=== PATIENT | male | born 1935 | race Hispanic/Latino ===

== ENCOUNTER 2016-11-18 08:37 | Outpatient (CLI) | payer MEDICARE ==
--- NOTE | 2016-11-18 10:35 | Ultrasound Report ---
The renal ultrasound: Abnormal renal function studies. The right kidney has a length of 9.1 cm. The kidney has a normal we echogenic pattern. Small focal echo density is identified centrally could represent a calculus. In the superior pole there is an echolucent partially exophytic circumscribed mass measuring 4.2 cm. Slight enhancement of the posterior wall. The kidney is otherwise unremarkable. The left renal length is 9.9 cm. The kidney is echogenically unremarkable. Imaging of the urinary bladder appears normal. There is mild prominence of the prostate gland. Impressions: 1. Superior pole right renal cyst. 2. Possible small right renal calculus. 3. Prominent prostate size.
== END 2016-11-18 08:38 | disposition home or self-care (01) ==
LOC: SPVWC 08:37
PROVIDERS: ATTEND Internal Medicine Nephrology
DX: N20.0 Calculus of kidney (principal); N28.1 Cyst of kidney, acquired; R94.4 Abnormal results of kidney function studies
CPT/HCPCS: 76770

== ENCOUNTER 2021-09-15 19:08 | Inpatient (IN) | payer MEDICARE ==
--- NOTE | 2021-09-15 20:48 | XRay Report ---
CHEST 1 VIEW 09/15/2021 8:20 PM INDICATION / CLINICAL INFORMATION: ams. COMPARISON: None available. FINDINGS: SUPPORT DEVICES: None. HEART / MEDIASTINUM: Post-CABG changes. LUNGS / PLEURA: There is blunting of the left costophrenic angle. There is mild left basilar airspace disease. No pneumothorax. ADDITIONAL FINDINGS: No significant additional findings. IMPRESSION: 1. Blunting at the left costophrenic angle could be due to small effusion or pleural scarring/thicken ing. Adjacent left basilar opacities may be due to scarring or atelectasis. Signer Name: Gallo Covarrubias MD Signed: 09/15/2021 8:44 PM Workstation Name: [id number]
--- NOTE | 2021-09-15 21:55 | Emergency Department Report ---
ED General Adult HPI - General Chief complaint: Dyspnea/Respdistress Stated complaint: TOMA Time Seen by Provider: 09/15/21 19:47 Source: patient Mode of arrival: Ambulatory Limitations: No Limitations - History of Present Illness Initial comments: The patient presents to the emergency department via EMS for altered mental status. Per the patient's sons the patient and the mother were diagnosed with COVID within the last 5 days. Patient was started on antivirals today per the patient's son's. Patient is a resident at the [facility]. Over the last 4 to 5 days the patient has become extremely weak and altered. Due to the patient's altered mental status he was not able to add to the history -: Gradual Consistency: constant Improves with: none Worsens with: none Associated Symptoms: denies other symptoms Treatments Prior to Arrival: none - Related Data Allergies Allergy/AdvReac Type Severity Reaction Status Date / Time No Known Allergies Allergy Verified 09/15/21 19:46 ED Review of Systems ROS: Stated complaint: TOMA Other details as noted in HPI Comment: Unobtainable due to pts medical conditions ED Past Medical Hx - Past Medical History Previous Medical History?: Yes Hx Hypertension: Yes Hx CVA: Yes Hx Heart Attack/AMI: Yes Hx Diabetes: Yes Hx Dementia: Yes - Surgical History Past Surgical History?: Yes Additional Surgical History: coronary bypass ED Physical Exam - General Limitations: No Limitations General appearance: obtunded (But easily arousable) - Head Head exam: Present: atraumatic, normocephalic - Eye Eye exam: Present: normal appearance, PERRL - ENT ENT exam: Present: mucous membranes dry - Neck Neck exam: Present: normal inspection. Absent: tenderness - Respiratory Respiratory exam: Present: decreased breath sounds. Absent: respiratory distress - Cardiovascular Cardiovascular Exam: Present: regular rate, tachycardia - GI/Abdominal GI/Abdominal exam: Present: soft, normal bowel sounds. Absent: distended, tenderness - Extremities Exam Extremities exam: Present: normal inspection - Neurological Exam Neurological exam: Present: altered - Psychiatric Psychiatric exam: Present: other (Not able to assess due to the patient's condition) - Skin Skin exam: Present: warm, dry, intact, normal color. Absent: rash ED Course Vital Signs 09/15/21 19:44 Temperature 100.1 F H Pulse Rate 116 H Respiratory 26 H Rate Blood Pressure 152/76 [Left] O2 Sat by Pulse 96 Oximetry ED Medical Decision Making - Lab Data Result diagrams: 09/15/21 21:13 09/15/21 21:13 Lab Results 09/15/21 09/15/21 09/15/21 Range/Units 21:13 21:13 21:13 WBC 15.6 H (4.5-11.0) K/mm3 RBC 4.73 (3.65-5.03) M/mm3 Hgb 14.5 (11.8-15.2) gm/dl Hct 42.7 (35.5-45.6) % MCV 90 (84-94) fl MCH 31 (28-32) pg MCHC 34 (32-34) % RDW 14.3 (13.2-15.2) % Plt Count 184 (140-440) K/mm3 Lymph % (Auto) 4.7 L (13.4-35.0) % [place] % (Auto) 14.8 H (0.0-7.3) % Eos % (Auto) 0.0 (0.0-4.3) % Baso % (Auto) 0.2 (0.0-1.8) % Lymph # (Auto) 0.7 L (1.2-5.4) K/mm3 [place] # (Auto) 2.3 H (0.0-0.8) K/mm3 Eos # (Auto) 0.0 (0.0-0.4) K/mm3 Baso # (Auto) 0.0 (0.0-0.1) K/mm3 Seg Neutrophils % 80.3 H (40.0-70.0) % Seg Neutrophils # 12.5 H (1.8-7.7) K/mm3 PT 14.3 (12.2-14.9) Sec. INR 0.97 (0.87-1.13) APTT 30.2 (24.2-36.6) Sec. Sodium 142 (137-145) mmol/L Potassium 4.0 (3.6-5.0) mmol/L Chloride 101.5 (98-107) mmol/L Carbon Dioxide 26 (22-30) mmol/L Anion Gap 19 mmol/L BUN 33 H (9-20) mg/dL Creatinine 1.5 H (0.8-1.3) mg/dL Estimated GFR 44 ml/min BUN/Creatinine Ratio 22 % Glucose 78 (75-100) mg/dL POC Glucose (70-105) mg/dL Lactic Acid (0.7-2.0) mmol/L Calcium 9.2 (8.4-10.2) mg/dL Total Bilirubin 0.50 (0.1-1.2) mg/dL AST 30 (5-40) units/L ALT 16 (7-56) units/L Alkaline Phosphatase 94 (35-129) units/L Troponin T < 0.010 (0.00-0.029) ng/mL NT-Pro-B Natriuret Pep 6988 H (0-900) pg/mL Total Protein 7.1 (6.3-8.2) g/dL Albumin 4.1 (3.9-5) g/dL Albumin/Globulin Ratio 1.4 % 09/15/21 09/15/21 Range/Units 21:13 22:41 WBC (4.5-11.0) K/mm3 RBC (3.65-5.03) M/mm3 Hgb (11.8-15.2) gm/dl Hct (35.5-45.6) % MCV (84-94) fl MCH (28-32) pg MCHC (32-34) % RDW (13.2-15.2) % Plt Count (140-440) K/mm3 Lymph % (Auto) (13.4-35.0) % [place] % (Auto) (0.0-7.3) % Eos % (Auto) (0.0-4.3) % Baso % (Auto) (0.0-1.8) % Lymph # (Auto) (1.2-5.4) K/mm3 [place] # (Auto) (0.0-0.8) K/mm3 Eos # (Auto) (0.0-0.4) K/mm3 Baso # (Auto) (0.0-0.1) K/mm3 Seg Neutrophils % (40.0-70.0) % Seg Neutrophils # (1.8-7.7) K/mm3 PT (12.2-14.9) Sec. INR (0.87-1.13) APTT (24.2-36.6) Sec. Sodium (137-145) mmol/L Potassium (3.6-5.0) mmol/L Chloride (98-107) mmol/L Carbon Dioxide (22-30) mmol/L Anion Gap mmol/L BUN (9-20) mg/dL Creatinine (0.8-1.3) mg/dL Estimated GFR ml/min BUN/Creatinine Ratio % Glucose (75-100) mg/dL POC Glucose 78 (70-105) mg/dL Lactic Acid 1.40 (0.7-2.0) mmol/L Calcium (8.4-10.2) mg/dL Total Bilirubin (0.1-1.2) mg/dL AST (5-40) units/L ALT (7-56) units/L Alkaline Phosphatase (35-129) units/L Troponin T (0.00-0.029) ng/mL NT-Pro-B Natriuret Pep (0-900) pg/mL Total Protein (6.3-8.2) g/dL Albumin (3.9-5) g/dL Albumin/Globulin Ratio % - EKG Data -: EKG Interpreted by Me Rate: tachycardia - EKG Data Interpretation: LVH - Radiology Data Radiology results: report reviewed - Medical Decision Making IV antibiotics initiated IV fluids given Critical care attestation.: If time is entered above; I have spent that time in minutes in the direct care of this critically ill patient, excluding procedure time. ED Disposition Clinical Impression: Altered mental status Disposition: 09 ADMITTED INPATIENT Is pt being admited?: Yes Does the pt Need Aspirin: No Condition: Fair
[2021-09-15 22:15] LABS: Basophils % (Auto) 0.2 % (0.0-1.8); Hematocrit 42.7 % (35.5-45.6); Hemoglobin 14.5 gm/dl (11.8-15.2); Lymphocytes # (Auto) 0.7 K/mm3 (1.2-5.4); Lymphocytes % (Auto) 4.7 % (13.4-35.0); Mean Corpuscular HGB Conc 34 % (32-34); Mean Corpuscular Volume 90 fl (84-94); Monocytes # (Auto) 2.3 K/mm3 (0.0-0.8); Monocytes % (Auto) 14.8 % (0.0-7.3); Platelet Count 184 K/mm3 (140-440); Red Blood Count 4.73 M/mm3 (3.65-5.03); Red Cell Distribution Width 14.3 % (13.2-15.2)
[2021-09-15 22:24] LABS: INR 0.97 (0.87-1.13)
[2021-09-15 22:25] LABS: Partial Thromboplastin Time 30.2 Sec. (24.2-36.6)
[2021-09-15 22:27] LABS: Alanine Aminotransferase 16 units/L (7-56); Albumin 4.1 g/dL (3.9-5); BUN/Creatinine Ratio 22; Blood Urea Nitrogen 33 mg/dL (9-20); Calcium 9.2 mg/dL (8.4-10.2); Hemolysis Index 14
[2021-09-15] MEDS ORDERED: SODIUM CHLORIDE 0.9% 1000 ML 1,000 ML IV ONE (22:54)
[2021-09-16] MEDS ORDERED: DEXTROSE 50% IN WATER (25GM) 50 ML SYRINGE IV ONE (00:48)
[2021-09-16] MEDS ORDERED: SODIUM CHLORIDE 0.9% 1000 ML 1,000 ML IV ONE (00:49)
[2021-09-16] MEDS ORDERED: ONDANSETRON 4 MG/2 ML INJ IV PRN (02:07)
[2021-09-16] MEDS ORDERED: MORPHINE 4 MG/1 ML INJ IV PRN (02:07)
[2021-09-16] MEDS ORDERED: MAGNESIUM HYDROXIDE (MOM) ORAL LIQD UDC PO PRN (02:07)
[2021-09-16] MEDS ORDERED: DEXTROSE 50% IN WATER (25GM) 50 ML SYRINGE IV PRN (02:07)
[2021-09-16] MEDS ORDERED: MORPHINE 2 MG/1 ML INJ IV PRN (02:07)
[2021-09-16] MEDS ORDERED: ACETAMINOPHEN 325 MG TAB PO PRN (02:07)
--- NOTE | 2021-09-16 02:24 | History and Physical Report ---
History of Present Illness Date of examination: 09/16/21 Date of admission: 09/16/2021 Chief complaint: Altered Mental Status History of present illness: 86-year-old white male with known history of dementia, coronary artery disease, hypothyroidism, diabetes mellitus, diagnosed about 4 days ago with COVID brought into the emergency room via EMS for evaluation of changes in mental status. Most of the history was given by the 2 sons who was by the bedside. Patient has been started on antiviral agent for the COVID prior to reporting to the emergency room. Family states patient has been feeling extremely weak and has had loss of appetite. There has been no fever or chills. However, patient has been having cough and some mild shortness of breath. Work-up in the emergency room today Work-up in the emergency room today, lab reveals a leukocytosis of 15.6, BUN of 33 and creatinine of 1.5. BNP 6988 urinalysis reveals 1+ bacteria and a few WBCs. Chest x-ray shows blunting at the left costal phrenic angle which could be due to small effusion or pleural scarring/beginning. I just sent left basilar opacity may be due to scarring or atelectasis. CT scan of the head did not show any acute findings according to preliminary readings. Patient has been placed on empiric IV antibiotics. Past History Past Medical History: acute CT, diabetes, hypertension, stroke, other (Dementia) Past Surgical History: CABG Social history: no significant social history Family history: no significant family history Medications and Allergies Allergies Allergy/AdvReac Type Severity Reaction Status Date / Time No Known Allergies Allergy Verified 09/15/21 19:46 Home Medications Medication Instructions Recorded Confirmed Last Taken Type AtorvaSTATin [Lipitor] 40 mg PO QHS 09/16/21 09/16/21 Unknown History Clopidogrel [Plavix] 75 mg PO QDAY 09/16/21 09/16/21 Unknown History Insulin Aspart (Nf) [NovoLOG 0 units SQ TID 09/16/21 09/16/21 Unknown History Flexpen] Insulin Detemir [Levemir Flextouch] 24 unit SQ QDAY 09/16/21 09/16/21 Unknown History Levothyroxine Sodium 50 mcg PO QAM 09/16/21 09/16/21 Unknown History [Levothyroxine] Memantine HCl [Namenda XR 10 each PO BID 09/16/21 09/16/21 Unknown History 0-16-69-28mg Titration Sukh] Pantoprazole [Protonix] 40 mg PO QDAY 09/16/21 09/16/21 Unknown History Tamsulosin [Flomax] 0.4 mg PO QDAY 09/16/21 09/16/21 Unknown History donepeziL [Aricept] 10 mg PO QDAY 09/16/21 09/16/21 Unknown History Review of Systems Constitutional: no fever, no chills Ears, nose, mouth and throat: no nasal congestion, no sore throat Cardiovascular: no chest pain, no palpitations Respiratory: cough, shortness of breath Gastrointestinal: no nausea, no vomiting, no diarrhea Genitourinary Male: no dysuria, no hematuria, no flank pain, no nocturia Musculoskeletal: no neck pain, no low back pain Integumentary: no rash, no pruritis Neurological: confusion, no headaches Psychiatric: no anxiety, no depression Endocrine: no polyphagia, no polydipsia, no polyuria, no nocturia Exam - Constitutional Vitals: Temp Pulse Resp BP Pulse Ox 100.1 F H 85 24 146/67 95 09/15/21 19:44 09/16/21 02:00 09/16/21 02:00 09/16/21 02:00 09/16/21 02:00 General appearance: Present: no acute distress, well-nourished, other (Dry Oral Mucosa) - EENT Eyes: Present: PERRL, EOM intact. Absent: scleral icterus ENT: hearing intact, clear oral mucosa, dentition normal - Neck Neck: Present: supple, normal ROM - Respiratory Respiratory effort: normal Respiratory: bilateral: diminished - Cardiovascular Rhythm: regular Heart Sounds: Present: S1 & S2. Absent: gallop, systolic murmur, diastolic murmur, rub, click - Extremities Extremities: no ischemia, pulses intact, pulses symmetrical, No edema, normal temperature, normal color, Full ROM Peripheral Pulses: within normal limits - Abdominal General gastrointestinal: Present: soft, non-tender, non-distended, normal bowel sounds. Absent: mass - Integumentary Integumentary: Present: clear, warm, dry, normal turgor. Absent: rash - Musculoskeletal Musculoskeletal: strength equal bilaterally - Psychiatric Psychiatric: appropriate mood/affect, intact judgment & insight, memory intact, cooperative - Neurologic Neurologic: CNII-XII intact, no focal deficits, moves all extremities HEART Score - HEART Score Troponin: Troponin T < 0.010 ng/mL (0.00-0.029) 09/15/21 21:13 Results - Labs CBC & Chem 7: 09/15/21 21:13 09/15/21 21:13 Labs: Abnormal lab results 09/15/21 09/15/21 Range/Units 21:13 21:13 WBC 15.6 H (4.5-11.0) K/mm3 Lymph % (Auto) 4.7 L (13.4-35.0) % [place] % (Auto) 14.8 H (0.0-7.3) % Lymph # (Auto) 0.7 L (1.2-5.4) K/mm3 [place] # (Auto) 2.3 H (0.0-0.8) K/mm3 Seg Neutrophils % 80.3 H (40.0-70.0) % Seg Neutrophils # 12.5 H (1.8-7.7) K/mm3 BUN 33 H (9-20) mg/dL Creatinine 1.5 H (0.8-1.3) mg/dL NT-Pro-B Natriuret Pep 6988 H (0-900) pg/mL Assessment and Plan Assessment : 1. Altered mental status 2. COVID-19 3. Leukocytosis 4. DILIA 5. Diabetes mellitus 6. History of coronary artery disease. 7. History of hypothyroidism. 8. Dementia Plan: 1. Patient admitted and placed on isolation precautions. 2. Started on empiric IV antibiotics and IV steroid. Patient has also been on antiviral agent prior to reporting to the emergency room. 3. Please consult to infectious disease for evaluation and recommendations. 4. Patient placed on sliding scale insulin. We will monitor Accu-Cheks. 5. We will resume routine home medications placed. 6. Patient will be placed on IV fluid. Will monitor BUN and creatinine. Consult will also be placed to nephrology for recommendations. DVT Prophylaxis: SQ Heparin Code Status: Full Code
[2021-09-16] MEDS: cefTRIAXone/NS 2 GM/100 ML 2 GM/100 ML BAG IV SCH (04:24)
[2021-09-16] MEDS: SODIUM CHLORIDE 0.45% 1000 ML 1,000 ML IV SCH ×2 (04:24→21:36)
[2021-09-16 06:11] LABS: Bilirubin,Urine Moderate (Negative); Color,Urine Colorless (Yellow)
[2021-09-16 06:12] LABS: Blood,Urine Moderate (Negative); Urobilinogen,Urine 0.2 mg/dL (<2.0)
[2021-09-16 06:16] LABS: Bacteria,Urine 1+ /HPF (Negative); Granular Casts,Urine 6 /LPF; Mucus,Urine FEW /HPF; Red Blood Cell Casts,Urine 3 /LPF
[2021-09-16 06:32] LABS: Ictotest,Urine Negative (Negative)
[2021-09-16] MEDS ORDERED: dexAMETHasone 4 MG/ML VIAL IV NR (07:30)
[2021-09-16] MEDS: LEVOTHYROXINE 50 MCG TAB PO SCH (09:38)
[2021-09-16] MEDS: INSULIN LISPRO 100 UNIT/ML SUB-Q SCH ×4 (09:38→21:28)
--- NOTE | 2021-09-16 09:40 | Progress Note ---
Assessment and Plan Assessment and plan: 86-year-old white male with known history of dementia, coronary artery disease, hypothyroidism, diabetes mellitus, diagnosed about 4 days ago with COVID brought into the emergency room via EMS for evaluation of changes in mental status. Most of the history was given by the 2 sons who reported that the patient had been started on antiviral agent for the COVID prior to reporting to the emergency room. Family stated the patient had been feeling extremely weak and had loss of appetite. Labs revealed a leukocytosis of 15.6, BUN of 33 and creatinine of 1.5. BNP 6988 urinalysis reveals 1+ bacteria and a few WBCs. Chest x-ray showed blunting at the left costal phrenic angle which could be due to small effusion or pleural scarring/beginning. The patient was admitted with diagnoses below: Sepsis. POA. Patient meets criteria given the tachypnea, leukocytosis, altered mentation and diagnosis of COVID-pneumonia. Acute hypoxic respiratory failure. COVID-pneumonia. Toxic metabolic encephalopathy. Leukocytosis Acute kidney injury Diabetes mellitus type 2 History of coronary artery disease History of hypothyroidism Dementia 09/16/2021. Continue IV antibiotics and IV steroids. Follow-up with ID consultation. Check inflammatory markers. Continue sliding scale insulin and Accu-Cheks History Interval history: No new issues overnight Hospitalist Physical - Constitutional Vitals: Temp Pulse Resp BP Pulse Ox 98.8 F 77 20 163/64 100 09/16/21 05:37 09/16/21 05:37 09/16/21 05:37 09/16/21 05:37 09/16/21 06:00 General appearance: Present: no acute distress, well-nourished, other (Dry Oral Mucosa) - EENT Eyes: Present: PERRL, EOM intact ENT: hearing intact, clear oral mucosa, dentition normal - Neck Neck: Present: supple, normal ROM - Respiratory Respiratory effort: normal Respiratory: bilateral: CTA - Cardiovascular Rhythm: regular Heart Sounds: Present: S1 & S2. Absent: gallop, rub - Extremities Extremities: no ischemia, No edema, Full ROM - Abdominal General gastrointestinal: soft, non-tender, non-distended, normal bowel sounds - Integumentary Integumentary: Present: clear, warm, dry - Neurologic Neurologic: CNII-XII intact, moves all extremities HEART Score - HEART Score Troponin: Troponin T < 0.010 ng/mL (0.00-0.029) 09/15/21 21:13 Results - Labs CBC & Chem 7: 09/15/21 21:13 09/15/21 21:13 Labs: Laboratory Last Values WBC 15.6 K/mm3 (4.5-11.0) H 09/15/21 21:13 RBC 4.73 M/mm3 (3.65-5.03) 09/15/21 21:13 Hgb 14.5 gm/dl (11.8-15.2) 09/15/21 21:13 Hct 42.7 % (35.5-45.6) 09/15/21 21:13 MCV 90 fl (84-94) 09/15/21 21:13 MCH 31 pg (28-32) 09/15/21 21:13 MCHC 34 % (32-34) 09/15/21 21:13 RDW 14.3 % (13.2-15.2) 09/15/21 21:13 Plt Count 184 K/mm3 (140-440) 09/15/21 21:13 Lymph % (Auto) 4.7 % (13.4-35.0) L 09/15/21 21:13 [place] % (Auto) 14.8 % (0.0-7.3) H 09/15/21 21:13 Eos % (Auto) 0.0 % (0.0-4.3) 09/15/21 21:13 Baso % (Auto) 0.2 % (0.0-1.8) 09/15/21 21:13 Lymph # (Auto) 0.7 K/mm3 (1.2-5.4) L 09/15/21 21:13 [place] # (Auto) 2.3 K/mm3 (0.0-0.8) H 09/15/21 21:13 Eos # (Auto) 0.0 K/mm3 (0.0-0.4) 09/15/21 21:13 Baso # (Auto) 0.0 K/mm3 (0.0-0.1) 09/15/21 21:13 Seg Neutrophils % 80.3 % (40.0-70.0) H 09/15/21 21:13 Seg Neutrophils # 12.5 K/mm3 (1.8-7.7) H 09/15/21 21:13 PT 14.3 Sec. (12.2-14.9) 09/15/21 21:13 INR 0.97 (0.87-1.13) 09/15/21 21:13 APTT 30.2 Sec. (24.2-36.6) 09/15/21 21:13 Sodium 142 mmol/L (137-145) 09/15/21 21:13 Potassium 4.0 mmol/L (3.6-5.0) 09/15/21 21:13 Chloride 101.5 mmol/L (98-107) 09/15/21 21:13 Carbon Dioxide 26 mmol/L (22-30) 09/15/21 21:13 Anion Gap 19 mmol/L 09/15/21 21:13 BUN 33 mg/dL (9-20) H 09/15/21 21:13 Creatinine 1.5 mg/dL (0.8-1.3) H 09/15/21 21:13 Estimated GFR 44 ml/min 09/15/21 21:13 BUN/Creatinine Ratio 22 % 09/15/21 21:13 Glucose 78 mg/dL (75-100) 09/15/21 21:13 POC Glucose 154 mg/dL (70-105) H 09/16/21 09:18 Lactic Acid 1.40 mmol/L (0.7-2.0) 09/15/21 21:13 Calcium 9.2 mg/dL (8.4-10.2) 09/15/21 21:13 Total Bilirubin 0.50 mg/dL (0.1-1.2) 09/15/21 21:13 AST 30 units/L (5-40) 09/15/21 21:13 ALT 16 units/L (7-56) 09/15/21 21:13 Alkaline Phosphatase 94 units/L (35-129) 09/15/21 21:13 Troponin T < 0.010 ng/mL (0.00-0.029) 09/15/21 21:13 NT-Pro-B Natriuret Pep 6988 pg/mL (0-900) H 09/15/21 21:13 Total Protein 7.1 g/dL (6.3-8.2) 09/15/21 21:13 Albumin 4.1 g/dL (3.9-5) 09/15/21 21:13 Albumin/Globulin Ratio 1.4 % 09/15/21 21:13 Urine Color Colorless (Yellow) 09/16/21 05:00 Urine Turbidity Clear (Clear) 09/16/21 05:00 Urine pH 6.0 (5.0-7.0) 09/16/21 05:00 Ur Specific [place] 1.020 (1.003-1.030) 09/16/21 05:00 Urine Protein 100 mg/dl mg/dL (Negative) 09/16/21 05:00 Urine Glucose (UA) Negative mg/dL (Negative) 09/16/21 05:00 Urine Ketones Negative mg/dL (Negative) 09/16/21 05:00 Urine Blood Moderate (Negative) A 09/16/21 05:00 Urine Nitrite Negative (Negative) 09/16/21 05:00 Urine Bilirubin Moderate (Negative) 09/16/21 05:00 Urine Ictotest Negative (Negative) 09/16/21 05:00 Urine Urobilinogen 0.2 mg/dL (<2.0) 09/16/21 05:00 Ur Leukocyte Esterase Negative (Negative) 09/16/21 05:00 Urine WBC (Auto) 5.0 /HPF (0.0-6.0) 09/16/21 05:00 Urine RBC (Auto) 35.0 /HPF (0.0-6.0) 09/16/21 05:00 Urine Bacteria (Auto) 1+ /HPF (Negative) 09/16/21 05:00 Granular Casts 6 /LPF 09/16/21 05:00 RBC Casts 3 /LPF 09/16/21 05:00 Urine Mucus Few /HPF 09/16/21 05:00 Microbiology: Microbiology 09/15/21 21:13 Peripheral/Venous Blood Culture - Preliminary Culture in Progress 09/15/21 21:13 Peripheral/Venous Blood Culture - Preliminary Culture in Progress [place]/IV: Voiding Method Condom Catheter Active Medications - Current Medications Current Medications: Generic Name Dose Route Start Last Admin Trade Name Freq PRN Reason Stop Dose Admin Acetaminophen 650 mg 09/16/21 02:07 Acetaminophen 325 Mg Tab PO Q4H PRN Pain MILD(1-3)/Fever >100.5/JUAREZ Atorvastatin Calcium 40 mg 09/16/21 22:00 Atorvastatin 40 Mg Tab PO QHS BUD Azithromycin 500 mg 09/16/21 10:00 Azithromycin 250 Mg Tab PO 09/20/21 10:01 QDAY [facility] Protocol Clopidogrel Bisulfate 75 mg 09/16/21 10:00 Clopidogrel 75 Mg Tab PO QDAY [facility] Dexamethasone 8 mg 09/16/21 07:30 Dexamethasone 4 Mg/Ml Vial IV 09/16/21 11:00 ONCE@0730 NR Dextrose 50 ml 09/16/21 02:07 Dextrose 50% In Water (25gm) 50 Ml Syringe IV Q30MIN PRN Hypoglycemia Protocol Donepezil HCl 10 mg 09/16/21 10:00 Donepezil 10 Mg Tab PO QDAY [facility] Sodium Chloride 1,000 mls @ 125 mls/hr 09/16/21 03:00 09/16/21 04:24 Nacl 0.45% 1000 Ml IV 125 mls/hr DIRECT BUD Administration Ceftriaxone Sodium 2 gm in 100 mls @ 200 mls/hr 09/16/21 03:00 09/16/21 04:24 Rocephin/Ns 2 Gm/100 Ml IV 09/20/21 03:29 200 mls/hr Q24H BUD Administration Protocol Insulin Human Lispro 0 unit 09/16/21 07:30 Insulin Lispro 100 Unit/Ml SUB-Q ACHS [facility] Protocol Levothyroxine Sodium 50 mcg 09/16/21 07:30 Levothyroxine 50 Mcg Tab PO DAILY@0600 [facility] Magnesium Hydroxide 30 ml 09/16/21 02:07 Magnesium Hydroxide (Mom) Oral Liqd Udc PO Q4H PRN Constipation Memantine 10 mg 09/16/21 10:00 Memantine 10 Mg Tab PO Q12HR [facility] Morphine Sulfate 2 mg 09/16/21 02:07 Morphine 2 Mg/1 Ml Inj IV Q4H PRN Pain, Moderate (4-6) Morphine Sulfate 4 mg 09/16/21 02:07 Morphine 4 Mg/1 Ml Inj IV Q4H PRN Pain , Severe (7-10) Ondansetron HCl 4 mg 09/16/21 02:07 Ondansetron 4 Mg/2 Ml Inj IV Q8H PRN Nausea And Vomiting Pantoprazole Sodium 40 mg 09/16/21 10:00 Pantoprazole 40 Mg Tab PO QDAY [facility] Sodium Chloride 10 ml 09/16/21 10:00 Sodium Chloride 0.9% 10 Ml Flush Syringe IV BID BUD Sodium Chloride 10 ml 09/16/21 02:07 Sodium Chloride 0.9% 10 Ml Flush Syringe IV PRN PRN LINE FLUSH Tamsulosin HCl 0.4 mg 09/16/21 10:00 Tamsulosin 0.4 Mg Cap PO QDAY BUD
--- NOTE | 2021-09-16 09:47 | Consultation ---
History of Present Illness - Reason for Consult Consult date: 09/16/21 acute renal failure, chronic renal failure - History of Present Illness 86-year-old white male with known history of dementia, coronary artery disease, hypothyroidism, diabetes mellitus, diagnosed about 4 days ago with COVID brought into the emergency room via EMS for evaluation of changes in mental status. Most of the history was given by the 2 sons who reported that the patient had been started on antiviral agent for the COVID prior to reporting to the emergency room. Family stated the patient had been feeling extremely weak and had loss of appetite. Labs revealed a leukocytosis of 15.6, BUN of 33 and creatinine of 1.5. BNP 6988 urinalysis reveals 1+ bacteria and a few WBCs. Chest x-ray showed blunting at the left costal phrenic angle which could be due to small effusion or pleural scarring/beginning. The patient was admitted with diagnoses below: Past History Past Medical History: acute [place], diabetes, hypertension, stroke, other (Dementia) Past Surgical History: CABG Social history: no significant social history Family history: no significant family history Medications and Allergies Allergies Allergy/AdvReac Type Severity Reaction Status Date / Time No Known Allergies Allergy Verified 09/15/21 19:46 Home Medications Medication Instructions Recorded Confirmed Last Taken Type AtorvaSTATin [Lipitor] 40 mg PO QHS 09/16/21 09/16/21 Unknown History Clopidogrel [Plavix] 75 mg PO QDAY 09/16/21 09/16/21 Unknown History Insulin Aspart (Nf) [NovoLOG 0 units SQ TID 09/16/21 09/16/21 Unknown History Flexpen] Insulin Detemir [Levemir Flextouch] 24 unit SQ QDAY 09/16/21 09/16/21 Unknown History Levothyroxine Sodium 50 mcg PO QAM 09/16/21 09/16/21 Unknown History [Levothyroxine] Memantine HCl [Namenda XR 10 each PO BID 09/16/21 09/16/21 Unknown History 4-63-06-28mg Titration Sukh] Pantoprazole [Protonix] 40 mg PO QDAY 09/16/21 09/16/21 Unknown History Tamsulosin [Flomax] 0.4 mg PO QDAY 09/16/21 09/16/21 Unknown History donepeziL [Aricept] 10 mg PO QDAY 09/16/21 09/16/21 Unknown History Active Meds: Active Medications Acetaminophen (Acetaminophen 325 Mg Tab) 650 mg PO Q4H PRN PRN Reason: Pain MILD(1-3)/Fever >100.5/JUAREZ Atorvastatin Calcium (Atorvastatin 40 Mg Tab) 40 mg PO QHS [facility] Azithromycin (Azithromycin 250 Mg Tab) 500 mg PO QDAY [facility]; Protocol Stop: 09/20/21 10:01 Last Admin: 09/16/21 09:34 Dose: 500 mg Clopidogrel Bisulfate (Clopidogrel 75 Mg Tab) 75 mg PO QDAY [facility] Last Admin: 09/16/21 09:34 Dose: 75 mg Dexamethasone (Dexamethasone 4 Mg/Ml Vial) 8 mg IV ONCE@0730 NR Stop: 09/16/21 11:00 Last Admin: 09/16/21 09:34 Dose: 8 mg Dextrose (Dextrose 50% In Water (25gm) 50 Ml Syringe) 50 ml IV Q30MIN PRN; Protocol PRN Reason: Hypoglycemia Donepezil HCl (Donepezil 10 Mg Tab) 10 mg PO QDAY [facility] Sodium Chloride (Nacl 0.45% 1000 Ml) 1,000 mls @ 125 mls/hr IV DIRECT BUD Last Admin: 09/16/21 04:24 Dose: 125 mls/hr Ceftriaxone Sodium (Rocephin/Ns 2 Gm/100 Ml) 2 gm in 100 mls @ 200 mls/hr IV Q24H [facility]; Protocol Stop: 09/20/21 03:29 Last Admin: 09/16/21 04:24 Dose: 200 mls/hr Insulin Human Lispro (Insulin Lispro 100 Unit/Ml) 0 unit SUB-Q ACHS [facility]; Protocol Last Admin: 09/16/21 09:38 Dose: 2 unit Levothyroxine Sodium (Levothyroxine 50 Mcg Tab) 50 mcg PO DAILY@0600 [facility] Last Admin: 09/16/21 09:38 Dose: 50 mcg Magnesium Hydroxide (Magnesium Hydroxide (Mom) Oral Liqd Udc) 30 ml PO Q4H PRN PRN Reason: Constipation Memantine (Memantine 10 Mg Tab) 10 mg PO Q12HR [facility] Morphine Sulfate (Morphine 2 Mg/1 Ml Inj) 2 mg IV Q4H PRN PRN Reason: Pain, Moderate (4-6) Morphine Sulfate (Morphine 4 Mg/1 Ml Inj) 4 mg IV Q4H PRN PRN Reason: Pain , Severe (7-10) Ondansetron HCl (Ondansetron 4 Mg/2 Ml Inj) 4 mg IV Q8H PRN PRN Reason: Nausea And Vomiting Pantoprazole Sodium (Pantoprazole 40 Mg Tab) 40 mg PO QDAY [facility] Last Admin: 09/16/21 09:34 Dose: 40 mg Sodium Chloride (Sodium Chloride 0.9% 10 Ml Flush Syringe) 10 ml IV BID [facility] Last Admin: 09/16/21 09:35 Dose: 10 ml Sodium Chloride (Sodium Chloride 0.9% 10 Ml Flush Syringe) 10 ml IV PRN PRN PRN Reason: LINE FLUSH Tamsulosin HCl (Tamsulosin 0.4 Mg Cap) 0.4 mg PO QDAY [facility] Last Admin: 09/16/21 09:33 Dose: 0.4 mg Exam - Vital Signs Vital signs: Vital Signs Temp Pulse Resp BP Pulse Ox 100.1 F H 116 H 26 H 152/76 96 09/15/21 19:44 09/15/21 19:44 09/15/21 19:44 09/15/21 19:44 09/15/21 19:44 Results - Lab Results 09/15/21 21:13 09/16/21 13:23 Most recent lab results Calcium 9.2 mg/dL (8.4-10.2) 09/15/21 21:13 Assessment and Plan 1. Acute kidney injury: ?Vasomotor DILIA in the setting of sepsis. Also Covid infection. Baseline renal fuction unknown. IV fluids. Monitor renal function. Creatinine level improving. Avoid nephrotoxic agents. Meds dosage based on GFR. 2. FEN: Replete lytes as needed. Monitor lytes and volume status. 3. Covid-19 infection: Not hypoxic. Monitor. 4. Sepsis, POA: COVID infection. 5. Acute hypoxic respiratory failure: 2/2 COVID infection. 6. Toxic metabolic encephalopathy, POA. 7. Diabetes mellitus type 2. 8. History of coronary artery disease 9. Dementia. Subjective: Patient was seen and examined at the bedside. Examination: General appearance: well-developed, appears stated age, no distress HEENT: atraumatic, no icterus Neck: trachea midline Respiratory: ctab Heart: S1S2, regular, no murmur Abdomen: soft, bowel sounds heard, NT Integumentary: no obvious rash Neurologic: alert, confused, able to move extremities Ext: no edema
[2021-09-16] MEDS ORDERED: MEMANTINE HCL PO SCH (10:00)
[2021-09-16] MEDS ORDERED: TAMSULOSIN 0.4 MG CAP PO SCH (10:00)
[2021-09-16] MEDS ORDERED: CLOPIDOGREL 75 MG TAB PO SCH (10:00)
[2021-09-16] MEDS ORDERED: DONEPEZIL 10 MG TAB PO SCH (10:00)
[2021-09-16] MEDS ORDERED: AZITHROMYCIN 250 MG TAB PO SCH (10:00)
[2021-09-16] MEDS ORDERED: LEVOTHYROXINE SODIUM 50 MCG PO SCH (10:00)
[2021-09-16] MEDS ORDERED: PANTOPRAZOLE 40 MG TAB PO SCH (10:00)
[2021-09-16] MEDS: MEMANTINE 10 MG TAB PO SCH ×2 (10:34→21:35)
[2021-09-16 11:50] LABS: C-Reactive Protein 22.3 mg/dL (0.00-1.30)
--- NOTE | 2021-09-16 13:04 | Magnetic Resonance Report ---
MR brain wo con INDICATION / CLINICAL INFORMATION: AMS. TECHNIQUE: Multiplanar, multisequence MR images of the brain were obtained. COMPARISON: 09/15/2021 CT FINDINGS: INTRACRANIAL: No restricted diffusion. No hemorrhage. Ventricular caliber is normal. No extra-axial c ollection. No mass. No herniation. Major intracranial vascular flow voids are preserved. Generalized parenchymal atrophy Small quantity of periventricular, central cinthya, and centrum semiovale T2 white matter hyperintensities most consistent with mild sequela of chronic microvascular disease. ORBITS: No significant abnormality of visualized orbits. SINUSES / MASTOIDS: Moderate mucosal thickening is seen throughout the paranasal sinuses most pronoun ashlee in the maxillary sinuses and ethmoid air cells. Mucosal retention cyst seen in the left frontal s inus. ADDITIONAL FINDINGS: None. IMPRESSION: 1. No acute intracranial abnormality. Signer Name: Raphael Newberry MD Signed: 09/16/2021 12:59 PM Workstation Name: [id number]
--- NOTE | 2021-09-16 13:18 | Consultation ---
History of Present Illness - Reason for Consult Consult date: 09/16/21 COVID-19 Requesting physician: UZMA BOLAND - History of Present Illness The patient is a 86-year-old male with CAD, hypothyroidism, diabetes, dementia, diagnosed with COVID-19 as an outpatient was brought into the hospital due to change in mental status. Upon evaluation in the hospital, low-grade temperature of 100.1 F. He has otherwise been on room air. Labs revealed leukocytosis of 15.6, D-dimer 583, creatinine 1.5, proBNP 6988, CRP 22, LDH 212, ferritin 657.8. UA showed 5 WBC. Chest x-ray showed blunting of left CP angle. MRI brain without contrast showed no acute intracranial abnormality. Review of Systems: reviewed in the chart, unable to obtain, minimize risk of transmission Past History Past Medical History: acute [place], diabetes, hypertension, stroke, other (Dementia) Past Surgical History: CABG Social history: no significant social history Family history: no significant family history Medications and Allergies Allergies Allergy/AdvReac Type Severity Reaction Status Date / Time No Known Allergies Allergy Verified 09/15/21 19:46 Home Medications Medication Instructions Recorded Confirmed Last Taken Type AtorvaSTATin [Lipitor] 40 mg PO QHS 09/16/21 09/16/21 Unknown History Clopidogrel [Plavix] 75 mg PO QDAY 09/16/21 09/16/21 Unknown History Insulin Aspart (Nf) [NovoLOG 0 units SQ TID 09/16/21 09/16/21 Unknown History Flexpen] Insulin Detemir [Levemir Flextouch] 24 unit SQ QDAY 09/16/21 09/16/21 Unknown History Levothyroxine Sodium 50 mcg PO QAM 09/16/21 09/16/21 Unknown History [Levothyroxine] Memantine HCl [Namenda XR 10 each PO BID 09/16/21 09/16/21 Unknown History 0-58-69-28mg Titration Sukh] Pantoprazole [Protonix] 40 mg PO QDAY 09/16/21 09/16/21 Unknown History Tamsulosin [Flomax] 0.4 mg PO QDAY 09/16/21 09/16/21 Unknown History donepeziL [Aricept] 10 mg PO QDAY 09/16/21 09/16/21 Unknown History Active Meds: Active Medications Acetaminophen (Acetaminophen 325 Mg Tab) 650 mg PO Q4H PRN PRN Reason: Pain MILD(1-3)/Fever >100.5/JUAREZ Atorvastatin Calcium (Atorvastatin 40 Mg Tab) 40 mg PO QHS [facility] Azithromycin (Azithromycin 250 Mg Tab) 500 mg PO QDAY [facility]; Protocol Stop: 09/20/21 10:01 Last Admin: 09/16/21 09:34 Dose: 500 mg Clopidogrel Bisulfate (Clopidogrel 75 Mg Tab) 75 mg PO QDAY [facility] Last Admin: 09/16/21 09:34 Dose: 75 mg Dextrose (Dextrose 50% In Water (25gm) 50 Ml Syringe) 50 ml IV Q30MIN PRN; Protocol PRN Reason: Hypoglycemia Donepezil HCl (Donepezil 10 Mg Tab) 10 mg PO QDAY [facility] Last Admin: 09/16/21 10:34 Dose: 10 mg Sodium Chloride (Nacl 0.45% 1000 Ml) 1,000 mls @ 125 mls/hr IV DIRECT BUD Last Admin: 09/16/21 04:24 Dose: 125 mls/hr Ceftriaxone Sodium (Rocephin/Ns 2 Gm/100 Ml) 2 gm in 100 mls @ 200 mls/hr IV Q24H [facility]; Protocol Stop: 09/20/21 03:29 Last Admin: 09/16/21 04:24 Dose: 200 mls/hr Insulin Human Lispro (Insulin Lispro 100 Unit/Ml) 0 unit SUB-Q ACHS [facility]; Protocol Last Admin: 09/16/21 11:48 Dose: Not Given Levothyroxine Sodium (Levothyroxine 50 Mcg Tab) 50 mcg PO DAILY@0600 [facility] Last Admin: 09/16/21 09:38 Dose: 50 mcg Magnesium Hydroxide (Magnesium Hydroxide (Mom) Oral Liqd Udc) 30 ml PO Q4H PRN PRN Reason: Constipation Memantine (Memantine 10 Mg Tab) 10 mg PO Q12HR [facility] Last Admin: 09/16/21 10:34 Dose: 10 mg Morphine Sulfate (Morphine 2 Mg/1 Ml Inj) 2 mg IV Q4H PRN PRN Reason: Pain, Moderate (4-6) Morphine Sulfate (Morphine 4 Mg/1 Ml Inj) 4 mg IV Q4H PRN PRN Reason: Pain , Severe (7-10) Ondansetron HCl (Ondansetron 4 Mg/2 Ml Inj) 4 mg IV Q8H PRN PRN Reason: Nausea And Vomiting Pantoprazole Sodium (Pantoprazole 40 Mg Tab) 40 mg PO QDAY [facility] Last Admin: 09/16/21 09:34 Dose: 40 mg Sodium Chloride (Sodium Chloride 0.9% 10 Ml Flush Syringe) 10 ml IV BID [facility] Last Admin: 09/16/21 09:35 Dose: 10 ml Sodium Chloride (Sodium Chloride 0.9% 10 Ml Flush Syringe) 10 ml IV PRN PRN PRN Reason: LINE FLUSH Tamsulosin HCl (Tamsulosin 0.4 Mg Cap) 0.4 mg PO QDAY [facility] Last Admin: 09/16/21 09:33 Dose: 0.4 mg Physical Examination - Physical Exam Narrative exam: Physical Exam (reviewed in chart to minimize risk of transmission) Constitutional: Resting comfortably, on room air Head, Ears, Nose: deferred Eyes: deferred Neck: deferred Oral: deferred Cardiovascular: deferred Respiratory: deferred GI: deferred Musculoskeletal: deferred Skin: deferred Hem/Lymphatic: deferred Psych: deferred Neurological: deferred - Constitutional Vitals: Vital Signs Temp Pulse Resp BP Pulse Ox 98.8 F 77 20 163/64 100 09/16/21 05:37 09/16/21 05:37 09/16/21 05:37 09/16/21 05:37 09/16/21 11:51 Temperature -Last 24 Hours Temperature 98.8 F Temperature 98.7 F Temperature 100.1 F Results - Labs CBC & Chem 7: 09/15/21 21:13 09/15/21 21:13 Labs: Abnormal lab results 09/15/21 09/15/21 09/16/21 Range/Units 21:13 21:13 03:01 WBC 15.6 H (4.5-11.0) K/mm3 Lymph % (Auto) 4.7 L (13.4-35.0) % [place] % (Auto) 14.8 H (0.0-7.3) % Lymph # (Auto) 0.7 L (1.2-5.4) K/mm3 [place] # (Auto) 2.3 H (0.0-0.8) K/mm3 Seg Neutrophils % 80.3 H (40.0-70.0) % Seg Neutrophils # 12.5 H (1.8-7.7) K/mm3 D-Dimer (0-234) ng/mlDDU BUN 33 H (9-20) mg/dL Creatinine 1.5 H (0.8-1.3) mg/dL POC Glucose 146 H (70-105) mg/dL Ferritin (30.0-300.0) ng/mL Lactate Dehydrogenase (91-180) units/L C-Reactive Protein (0.00-1.30) mg/dL NT-Pro-B Natriuret Pep 6988 H (0-900) pg/mL Urine Blood (Negative) 09/16/21 09/16/21 09/16/21 Range/Units 05:00 09:18 10:15 WBC (4.5-11.0) K/mm3 Lymph % (Auto) (13.4-35.0) % [place] % (Auto) (0.0-7.3) % Lymph # (Auto) (1.2-5.4) K/mm3 [place] # (Auto) (0.0-0.8) K/mm3 Seg Neutrophils % (40.0-70.0) % Seg Neutrophils # (1.8-7.7) K/mm3 D-Dimer 583.35 H (0-234) ng/mlDDU BUN (9-20) mg/dL Creatinine (0.8-1.3) mg/dL POC Glucose 154 H (70-105) mg/dL Ferritin (30.0-300.0) ng/mL Lactate Dehydrogenase (91-180) units/L C-Reactive Protein (0.00-1.30) mg/dL NT-Pro-B Natriuret Pep (0-900) pg/mL Urine Blood Moderate A (Negative) 09/16/21 09/16/21 09/16/21 Range/Units 10:15 10:15 11:13 WBC (4.5-11.0) K/mm3 Lymph % (Auto) (13.4-35.0) % [place] % (Auto) (0.0-7.3) % Lymph # (Auto) (1.2-5.4) K/mm3 [place] # (Auto) (0.0-0.8) K/mm3 Seg Neutrophils % (40.0-70.0) % Seg Neutrophils # (1.8-7.7) K/mm3 D-Dimer (0-234) ng/mlDDU BUN (9-20) mg/dL Creatinine (0.8-1.3) mg/dL POC Glucose 147 H (70-105) mg/dL Ferritin 657.8 H (30.0-300.0) ng/mL Lactate Dehydrogenase 212 H (91-180) units/L C-Reactive Protein 22.30 H (0.00-1.30) mg/dL NT-Pro-B Natriuret Pep (0-900) pg/mL Urine Blood (Negative) - Imaging and Cardiology Chest x-ray: report reviewed, image reviewed (blunted L CP angle) Assessment and Plan Cultures: SARS CoV2 PCR: Positive 09/15/2021 blood culture: In process A/P: 86-year-old male with CAD, hypothyroidism, diabetes, dementia, diagnosed with COVID-19 as an outpatient was brought into the hospital due to change in mental status: #COVID-19 #Sepsis: Likely secondary to above #Acute encephalopathy #DILIA: Renally adjust antibiotics. #Dementia Recs: Since patient is on room air, hold off on steroids IV remdesivir x 5 days ordered due to COVID-19 and high risk of disease progression considering patient's age and comorbidities prophylactic anticoagulation based on d-dimer per hospital protocol f/u procalcitonin, continue empiric Ceftriaxone + Azithromycin for now trend ferritin, d-dimer, CRP every 2-3 days Ida Ellsworth MD, FACP, [facility] O: [phone] F: [phone] C: [phone]
[2021-09-16 14:52] LABS: Calcium 8.3 mg/dL (8.4-10.2)
[2021-09-16] MEDS ORDERED: REMDESIVIR 200 MG in SODIUM CHLORIDE 0.9% 250ML 250 ML IV ONE (15:00)
[2021-09-16] MEDS ORDERED: SODIUM CHLORIDE 0.9% 50 ML IVPB IV SCH (15:00)
--- NOTE | 2021-09-16 18:40 | Electrocardiograph Report ---
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
[2021-09-17] MEDS: cefTRIAXone/NS 2 GM/100 ML 2 GM/100 ML BAG IV SCH (04:17)
[2021-09-17] MEDS: LEVOTHYROXINE 50 MCG TAB PO SCH (05:05)
[2021-09-17 05:44] VITALS: BP 156/60
[2021-09-17 07:34] LABS: Basophils % (Auto) 0.5 % (0.0-1.8); Eosinophils # (Auto) 0.1 K/mm3 (0.0-0.4); Eosinophils % (Auto) 0.8 % (0.0-4.3); Hematocrit 33.3 % (35.5-45.6); Hemoglobin 11.4 gm/dl (11.8-15.2); Lymphocytes # (Auto) 1.1 K/mm3 (1.2-5.4); Lymphocytes % (Auto) 12.9 % (13.4-35.0); Mean Corpuscular HGB Conc 34 % (32-34); Mean Corpuscular Volume 90 fl (84-94); Monocytes # (Auto) 1.1 K/mm3 (0.0-0.8); Monocytes % (Auto) 13.3 % (0.0-7.3); Platelet Count 148 K/mm3 (140-440); Red Blood Count 3.72 M/mm3 (3.65-5.03); Red Cell Distribution Width 14.2 % (13.2-15.2)
[2021-09-17 07:47] LABS: Albumin 2.7 g/dL (3.9-5); Calcium 7.7 mg/dL (8.4-10.2)
[2021-09-17 07:48] LABS: Calcium 7.8 mg/dL (8.4-10.2)
--- NOTE | 2021-09-17 09:12 | Discharge Summary ---
Providers - Providers Date of Admission: 09/16/21 02:09 Date of discharge: 09/17/21 Attending physician: ERASTO ZUNIGA 09/16/21 02:07 Consult to Physician [CONS] Routine Comment: Consulting Provider: JESSIE GRUBBS Physician Instructions: Reason For Exam: COVID POSITIVE 09/16/21 02:09 Consult to Dietitian/Nutrition [CONS] Routine Physician Instructions: Reason For Exam: Reason for Consult: Diet education 09/16/21 07:26 Consult to Physician [CONS] Routine Comment: Consulting Provider: ALLISON DORAN Physician Instructions: Reason For Exam: DILIA 09/16/21 09:41 Physical Therapy Evaluation and Treat [CONS] Routine Comment: Reason For Exam: deconditioning, weakness Primary care physician: MAINTENANCE SUPERVISOR Hospitalization Condition: Fair Hospital course: 86-year-old white male with known history of dementia, coronary artery disease, hypothyroidism, diabetes mellitus, diagnosed about 4 days ago with COVID brought into the emergency room via EMS for evaluation of changes in mental status. Most of the history was given by the 2 sons who reported that the patient had been started on antiviral agent for the COVID prior to reporting to the emergency room. Family stated the patient had been feeling extremely weak and had loss of appetite. Labs revealed a leukocytosis of 15.6, BUN of 33 and creatinine of 1.5. BNP 6988 urinalysis reveals 1+ bacteria and a few WBCs. Chest x-ray showed blunting at the left costal phrenic angle which could be due to small effusion or pleural scarring/beginning. The patient was admitted with diagnoses of sepsis, COVID infection, acute hypoxic respiratory failure, toxic metabolic encephalopathy, leukocytosis, acute kidney injury, diabetes mellitus type 2, coronary artery disease, hypothyroidism and dementia. The patient was initially started on IV antibiotics and IV steroids. However, patient appears to have asymptomatic COVID infection. Chest x-ray was negative for pneumonia or pleural effusions. IV steroids were not needed because patient has not shown any signs of hypoxia since admission. Also, IV antibiotics discontinued because procalcitonin level is normal. MRI was negative with regards to the altered mentation. Patient appears to be back to baseline mental status. Patient is well to receive maximal hospital benefit and will be discharged home. Dedicated discharge time 32 minutes with Disposition: 01 HOME / SELF CARE / HOMELESS Final Discharge Diagnosis (Prints w/discharge instructions): Sepsis, acute hypoxic respiratory failure, COVID-19 infection, acute encephalopathy, acute kidney injury, dementia Core Measure Documentation - Palliative Care Palliative Care/ Comfort Measures: Not Applicable - Core Measures Any of the following diagnoses?: none Exam - Constitutional Vitals: Temp Pulse Resp BP Pulse Ox 99.2 F 75 18 156/60 92 09/17/21 05:28 09/17/21 05:28 09/17/21 05:28 09/17/21 05:28 09/17/21 05:28 General appearance: Present: no acute distress, well-nourished - EENT Eyes: Present: PERRL ENT: hearing intact, clear oral mucosa - Neck Neck: Present: supple, normal ROM - Respiratory Respiratory effort: normal Respiratory: bilateral: CTA - Cardiovascular Heart Sounds: Present: S1 & S2. Absent: rub, click - Extremities Extremities: pulses symmetrical, No edema Peripheral Pulses: within normal limits - Abdominal General gastrointestinal: Present: soft, non-tender, non-distended, normal bowel sounds Male genitourinary: Present: normal - Integumentary Integumentary: Present: clear, warm, dry - Musculoskeletal Musculoskeletal: gait normal, strength equal bilaterally - Psychiatric Psychiatric: appropriate mood/affect, intact judgment & insight - Neurologic Neurologic: CNII-XII intact, moves all extremities Plan Activity: advance as tolerated Weight Bearing Status: Weight Bear as Tolerated Diet: regular Follow up with: PRIMARY CARE, [Primary Care Provider] - 7 Days
--- NOTE | 2021-09-17 10:54 | Progress Note ---
Assessment and Plan Cultures: SARS CoV2 PCR: Positive 09/15/2021 blood culture: no growth A/P: 86-year-old male with CAD, hypothyroidism, diabetes, dementia, diagnosed with COVID-19 as an outpatient was brought into the hospital due to change in mental status: #COVID-19: Procalcitonin 1.1, CRP 22.3 #Sepsis: Likely secondary to above #Acute encephalopathy #DILIA: Renally adjust antibiotics. #Dementia Recs: -Given elevated procalcitonin and CRP, recommend completing at least 3 days of Remdesivir due to high risk of disease progression. If he remains on room air after that, okay for discharge. Complete 5 days of empiric antibiotics: Ceftriaxone + Azithromycin. If discharged, could give Ceftin 500 mg twice daily with azithromycin 500 mg daily -If patient develops any hypoxia, start steroids: Decadron 6 mg daily Ida Ellsworth MD, FACP, [facility] O: [phone] F: [phone] C: [phone] Subjective Date of service: 09/17/21 Interval history: Lying in bed, awake, alert, on room air. Pleasantly confused. Objective - Exam Narrative Exam: Physical Exam: Constitutional: Awake, alert, no distress Head, Ears, Nose: Normocephalic, atraumatic. External ears, nose normal Eyes: Conjunctivae/corneas clear. No icterus. No ptosis. Neck: Supple, no meningeal signs Cardiovascular: S1, S2 + Respiratory: Good air entry, clear to auscultation bilaterally GI: Soft, non-tender; bowel sounds normal. No peritoneal signs Musculoskeletal: No pedal edema, no cyanosis. Skin: No rash or abscess Hem/Lymphatic: No palpable cervical or supraclavicular nodes. No lymphangitis Psych: No agitation. Calm. Neurological: Awake, alert, confused - Constitutional Vitals: Vital Signs Temp Pulse Resp BP Pulse Ox 99.2 F 75 18 156/60 92 09/17/21 05:28 09/17/21 05:28 09/17/21 05:28 09/17/21 05:28 09/17/21 05:28 Temperature -Last 24 Hours Temperature 99.2 F Temperature 98.8 F Temperature 97.1 F Temperature 98.8 F - Labs CBC & Chem 7: 09/17/21 06:37 09/17/21 06:37 Labs: Abnormal lab results 09/16/21 09/16/21 09/16/21 Range/Units 10:15 10:15 10:15 Hgb (11.8-15.2) gm/dl Hct (35.5-45.6) % Lymph % (Auto) (13.4-35.0) % [place] % (Auto) (0.0-7.3) % Lymph # (Auto) (1.2-5.4) K/mm3 [place] # (Auto) (0.0-0.8) K/mm3 Seg Neutrophils % (40.0-70.0) % D-Dimer 583.35 H (0-234) ng/mlDDU Carbon Dioxide (22-30) mmol/L BUN (9-20) mg/dL Creatinine (0.8-1.3) mg/dL Glucose (75-100) mg/dL POC Glucose (70-105) mg/dL Calcium (8.4-10.2) mg/dL Phosphorus (2.5-4.5) mg/dL Ferritin 657.8 H (30.0-300.0) ng/mL Lactate Dehydrogenase 212 H (91-180) units/L C-Reactive Protein 22.30 H (0.00-1.30) mg/dL Total Protein (6.3-8.2) g/dL Albumin (3.9-5) g/dL Coronavirus (PCR) (Negative) 09/16/21 09/16/21 09/16/21 Range/Units 11:13 13:23 Unknown Hgb (11.8-15.2) gm/dl Hct (35.5-45.6) % Lymph % (Auto) (13.4-35.0) % [place] % (Auto) (0.0-7.3) % Lymph # (Auto) (1.2-5.4) K/mm3 [place] # (Auto) (0.0-0.8) K/mm3 Seg Neutrophils % (40.0-70.0) % D-Dimer (0-234) ng/mlDDU Carbon Dioxide 20 L (22-30) mmol/L BUN 28 H (9-20) mg/dL Creatinine (0.8-1.3) mg/dL Glucose 172 H (75-100) mg/dL POC Glucose 147 H (70-105) mg/dL Calcium 8.3 L (8.4-10.2) mg/dL Phosphorus (2.5-4.5) mg/dL Ferritin (30.0-300.0) ng/mL Lactate Dehydrogenase (91-180) units/L C-Reactive Protein (0.00-1.30) mg/dL Total Protein (6.3-8.2) g/dL Albumin 3.0 L (3.9-5) g/dL Coronavirus (PCR) Positive A (Negative) 09/17/21 09/17/21 09/17/21 Range/Units 06:37 06:37 06:37 Hgb 11.4 L D (11.8-15.2) gm/dl Hct 33.3 L D (35.5-45.6) % Lymph % (Auto) 12.9 L (13.4-35.0) % [place] % (Auto) 13.3 H (0.0-7.3) % Lymph # (Auto) 1.1 L (1.2-5.4) K/mm3 [place] # (Auto) 1.1 H (0.0-0.8) K/mm3 Seg Neutrophils % 72.5 H (40.0-70.0) % D-Dimer (0-234) ng/mlDDU Carbon Dioxide (22-30) mmol/L BUN 30 H 29 H (9-20) mg/dL Creatinine 1.4 H 1.4 H (0.8-1.3) mg/dL Glucose 119 H 116 H (75-100) mg/dL POC Glucose (70-105) mg/dL Calcium 7.8 L 7.7 L (8.4-10.2) mg/dL Phosphorus 2.40 L (2.5-4.5) mg/dL Ferritin (30.0-300.0) ng/mL Lactate Dehydrogenase (91-180) units/L C-Reactive Protein (0.00-1.30) mg/dL Total Protein 5.0 L D (6.3-8.2) g/dL Albumin 2.7 L (3.9-5) g/dL Coronavirus (PCR) (Negative) 09/17/21 Range/Units 07:21 Hgb (11.8-15.2) gm/dl Hct (35.5-45.6) % Lymph % (Auto) (13.4-35.0) % [place] % (Auto) (0.0-7.3) % Lymph # (Auto) (1.2-5.4) K/mm3 [place] # (Auto) (0.0-0.8) K/mm3 Seg Neutrophils % (40.0-70.0) % D-Dimer (0-234) ng/mlDDU Carbon Dioxide (22-30) mmol/L BUN (9-20) mg/dL Creatinine (0.8-1.3) mg/dL Glucose (75-100) mg/dL POC Glucose 125 H (70-105) mg/dL Calcium (8.4-10.2) mg/dL Phosphorus (2.5-4.5) mg/dL Ferritin (30.0-300.0) ng/mL Lactate Dehydrogenase (91-180) units/L C-Reactive Protein (0.00-1.30) mg/dL Total Protein (6.3-8.2) g/dL Albumin (3.9-5) g/dL Coronavirus (PCR) (Negative)
--- NOTE | 2021-09-17 12:27 | Progress Note ---
Assessment and Plan 1. Acute kidney injury: ?Vasomotor DILIA in the setting of sepsis. Also Covid infection. Baseline renal fuction unknown. IV fluids. Monitor renal function. Creatinine level is better Avoid nephrotoxic agents. Meds dosage based on GFR. 2. FEN: Replete lytes as needed. Monitor lytes and volume status. 3. Covid-19 infection: Monitor. 4. Sepsis, POA: COVID infection. 5. Acute hypoxic respiratory failure: 2/2 COVID infection. 6. Toxic metabolic encephalopathy, POA. 7. Diabetes mellitus type 2. 8. History of coronary artery disease 9. Dementia. Subjective: Patient was seen and examined at the bedside. Examination: General appearance: well-developed, appears stated age, no distress HEENT: atraumatic, no icterus Neck: trachea midline Respiratory: ctab Heart: S1S2, regular, no murmur Abdomen: soft, bowel sounds heard, NT Integumentary: no obvious rash Neurologic: alert, confused, able to move extremities Ext: no edema Subjective Date of service: 09/17/21 Objective - Vital Signs Vital signs: Vital Signs - 12hr 09/17/21 09/17/21 00:35 05:28 Temperature 99.2 F Pulse Rate 75 Respiratory 18 Rate Blood Pressure 156/60 O2 Sat by Pulse 100 92 Oximetry - Lab 09/17/21 06:37 09/17/21 06:37 Most recent lab results Calcium 7.7 mg/dL (8.4-10.2) L 09/17/21 06:37 Calcium 7.8 mg/dL (8.4-10.2) L 09/17/21 06:37 Phosphorus 2.40 mg/dL (2.5-4.5) L 09/17/21 06:37 Magnesium 1.80 mg/dL (1.7-2.3) 09/17/21 06:37 Medications & Allergies - Medications Allergies/Adverse Reactions: Allergies No Known Allergies Allergy (Verified 09/15/21 19:46) Home Medications: Home Medications Medication Instructions Recorded Confirmed Last Taken Type AtorvaSTATin [Lipitor] 40 mg PO QHS 09/16/21 09/16/21 Unknown History Clopidogrel [Plavix] 75 mg PO QDAY 09/16/21 09/16/21 Unknown History Insulin Aspart (Nf) [NovoLOG 0 units SQ TID 09/16/21 09/16/21 Unknown History Flexpen] Insulin Detemir [Levemir Flextouch] 24 unit SQ QDAY 09/16/21 09/16/21 Unknown History Levothyroxine Sodium 50 mcg PO QAM 09/16/21 09/16/21 Unknown History [Levothyroxine] Memantine HCl [Namenda XR 10 each PO BID 09/16/21 09/16/21 Unknown History 6-37-66-28mg Titration Sukh] Pantoprazole [Protonix TAB] 40 mg PO QDAY 09/16/21 09/16/21 Unknown History Tamsulosin [Flomax] 0.4 mg PO QDAY 09/16/21 09/16/21 Unknown History donepeziL [Aricept] 10 mg PO QDAY 09/16/21 09/16/21 Unknown History Levothyroxine [Synthroid] 50 mcg PO DAILY@0600 tablet 09/17/21 Unknown Rx Memantine 10 mg PO Q12HR tablet 09/17/21 Unknown Rx Active Medications: Generic Name Dose Route Start Last Admin Trade Name Janq PRN Reason Stop Dose Admin Acetaminophen 650 mg 09/16/21 02:07 Acetaminophen 325 Mg Tab PO Q4H PRN Pain MILD(1-3)/Fever >100.5/JUAREZ Atorvastatin Calcium 40 mg 09/16/21 22:00 09/16/21 21:35 Atorvastatin 40 Mg Tab PO 40 mg QHS BUD Administration Azithromycin 500 mg 09/16/21 10:00 09/16/21 09:34 Azithromycin 250 Mg Tab PO 09/20/21 10:01 500 mg QDAY BUD Administration Protocol Clopidogrel Bisulfate 75 mg 09/16/21 10:00 09/16/21 09:34 Clopidogrel 75 Mg Tab PO 75 mg QDAY BUD Administration Dextrose 50 ml 09/16/21 02:07 Dextrose 50% In Water (25gm) 50 Ml Syringe IV Q30MIN PRN Hypoglycemia Protocol Donepezil HCl 10 mg 09/16/21 10:00 09/16/21 10:34 Donepezil 10 Mg Tab PO 10 mg QDAY BUD Administration Sodium Chloride 1,000 mls @ 125 mls/hr 09/16/21 03:00 09/16/21 21:36 Nacl 0.45% 1000 Ml IV 125 mls/hr DIRECT BUD Administration Ceftriaxone Sodium 2 gm in 100 mls @ 200 mls/hr 09/16/21 03:00 09/17/21 04:17 Rocephin/Ns 2 Gm/100 Ml IV 09/20/21 03:29 200 mls/hr Q24H BUD Administration Protocol Remdesivir 100 mg/ Sodium 250 mls @ 500 mls/hr 09/17/21 14:00 Chloride IV 09/20/21 14:29 Q24HR@1400 BUD Insulin Human Lispro 0 unit 09/16/21 07:30 09/16/21 21:28 Insulin Lispro 100 Unit/Ml SUB-Q Not Given ACHS [facility] Protocol Levothyroxine Sodium 50 mcg 09/16/21 07:30 09/17/21 05:05 Levothyroxine 50 Mcg Tab PO 50 mcg DAILY@0600 [facility] Administration Magnesium Hydroxide 30 ml 09/16/21 02:07 Magnesium Hydroxide (Mom) Oral Liqd Udc PO Q4H PRN Constipation Memantine 10 mg 09/16/21 10:00 09/16/21 21:35 Memantine 10 Mg Tab PO 10 mg Q12HR BUD Administration Morphine Sulfate 2 mg 09/16/21 02:07 Morphine 2 Mg/1 Ml Inj IV Q4H PRN Pain, Moderate (4-6) Morphine Sulfate 4 mg 09/16/21 02:07 Morphine 4 Mg/1 Ml Inj IV Q4H PRN Pain , Severe (7-10) Ondansetron HCl 4 mg 09/16/21 02:07 Ondansetron 4 Mg/2 Ml Inj IV Q8H PRN Nausea And Vomiting Pantoprazole Sodium 40 mg 09/16/21 10:00 09/16/21 09:34 Pantoprazole 40 Mg Tab PO 40 mg QDAY BUD Administration Sodium Chloride 10 ml 09/16/21 10:00 09/16/21 21:36 Sodium Chloride 0.9% 10 Ml Flush Syringe IV 10 ml BID BUD Administration Sodium Chloride 10 ml 09/16/21 02:07 Sodium Chloride 0.9% 10 Ml Flush Syringe IV PRN PRN LINE FLUSH Sodium Chloride 50 ml 09/16/21 15:00 09/16/21 15:10 Sodium Chloride 0.9% 50 Ml Ivpb IV 09/20/21 14:01 50 ml Q24HR@1400 [facility] Administration Tamsulosin HCl 0.4 mg 09/16/21 10:00 09/16/21 09:33 Tamsulosin 0.4 Mg Cap PO 0.4 mg QDAY BUD Administration
[2021-09-17] MEDS ORDERED: REMDESIVIR 100 MG in SODIUM CHLORIDE 0.9% 250ML 250 ML IV SCH (14:00)
--- NOTE | 2021-09-21 09:42 | Cat Scan Report ---
This exam has been previously reported on 09/15/2021. A report is in the PACs system Signer Name: Ruddy Stauffer MD Signed: 09/21/2021 9:38 AM Workstation Name: [email or web address]
== END 2021-09-17 17:00 | disposition home or self-care (01) | DRG 871 ==
LOC: ED 19:08 → 3A 09-16 02:09
PROVIDERS: ADMIT Internal Medicine Geriatric Medicine; ATTEND Hospitalist
DX: A41.9 Sepsis, unspecified organism (principal); G92.8 Other toxic encephalopathy; U07.1 COVID-19; J12.82 Pneumonia due to coronavirus disease 2019; J96.01 Acute respiratory failure with hypoxia; N17.9 Acute kidney failure, unspecified; E11.9 Type 2 diabetes mellitus without complications; F03.90 Unspecified dementia, unspecified severity, without behavioral disturbance, psychotic disturbance, mood disturbance, and anxiety; I25.10 Atherosclerotic heart disease of native coronary artery without angina pectoris; E03.9 Hypothyroidism, unspecified; Z95.1 Presence of aortocoronary bypass graft; I25.2 Old myocardial infarction; Z86.73 Personal history of transient ischemic attack (TIA), and cerebral infarction without residual deficits
CPT/HCPCS: 36415; 70450; 70551; 71045; 80048; 80053; 81001; 82140; 82728; 82962; 83615; 83735; 83880; 84100; 84145; 84484; 85025; 85379; 85610; 85730; 86140; 87040; 93005; G0378; J3490; Q9967; J0696; J1100; J1815; J7030; J7050; U0003